=== PATIENT | male | born 1995 | race Caucasian/White ===

== ENCOUNTER 2024-08-28 09:01 | Emergency (ER) | payer SELFPAY ==
[2024-08-28 09:02] VITALS: BP 149/97; PULSE 72; RESP 16; TEMP 37; O2SAT 100
[2024-08-28 09:04] VITALS: BMI 32.5
--- NOTE | 2024-08-28 09:23 | RAD_ITS ---
HISTORY: Injury/Pain. TECHNIQUE: XR Foot Min 3 Views. COMPARISON: None. FINDINGS: BONES : No acute fracture identified. Degenerative cysts and osteophytes of the first metatarsophalangeal joint. JOINTS: No dislocation. Joint spaces maintained. SOFT TISSUES: No radiopaque foreign body identified. RAD/Foot min 3 Views IMPRESSION: No acute fracture or dislocation identified in the right foot. Electronically Signed: Pilar Anaya MD at 9:44 EST ,
--- NOTE | 2024-08-28 09:24 | ED.VIS.LOWEX ---
HPI History of Present Illness Chief Complaint: Lower Extremity Injury Informant: patient Narrative Narrative: Patient is a 29-year-old male denies any significant past medical history presenting with right foot pain. He states on night he did go to the [employer] game but does not recall an injury. He notes he was really cold and his feet were numb so it is possible he could have done something and not felt it. He had some mild discomfort of his foot on Wednesday but was able to work on Wednesday. He states at work he does a lot of walking. The pain progressed throughout the day on Wednesday and he started limping. Yesterday (Wednesday) he was not able to bear any weight. He tried elevation, ice and total of 4 ibuprofen throughout the whole day. He continued to have pain today is not really able to walk so he came in especially as he had to miss work. The pain is worse over his right foot on the lateral aspect. No significant pain with range of motion but slightly worse when he dorsiflexes. No fever or chills reported. No other complaints or concerns at this time. PFSH PFS Home Medications ?Medication ?Instructions ?Recorded ?Last Taken ?Type ibuprofen 600 mg tablet 600 mg PO Q6H PRN PRN pain #20 08/28/24 Unknown Rx TABLETS Allergy/AdvReac Type Severity Reaction Status Date / Time No Known Allergies Allergy Verified 08/28/24 09:01 Social History Smoking Status: Current every day smoker tobacco type: cigarettes ROS ROS ED Constitutional Constitutional ED: Denies chills or fever(s) Respiratory/Chest Respiratory/Chest: Denies cough or dyspnea Musculoskeletal Musculoskeletal: Reports other Details: Right foot pain Integumentary Denies rash Neurologic Neurologic: Denies paresthesias or weakness Hematologic/Lymphatic Hematologic/Lymphatic: Denies easy bleeding or easy bruising EXAM Physical Exam Const Vital Signs: 08/28/24 09:02 Temperature 98.6 F Temperature Source Oral Pulse Rate 72 Respiratory Rate 16 Blood Pressure 149/97 H Blood Pressure Mean 114 Pulse Ox 100 Oxygen Delivery Method Room Air Positive well nourished and well developed General Appearance ED: well developed and NAD HEENT Reports moist mucous membranes Chest Wall inspection of chest normal Resp normal respiratory effort and clear to auscultation bilaterally Cardio regular rate and regular rhythm Cardio Narrative: 2+ DP pulses Extremity full ROM Extremity Narrative: Right lower extremity Mild edema noted to the right foot most prominent over the 3rd through 4th metatarsal heads. There is mild tenderness palpation over the fourth metatarsal. No obvious deformity. No tenderness palpation over the medial lateral malleolus. No pain with range of motion of the ankle. No pain over palpation of the insertion of the plantar fascia. Normal Dennison test. No pain over the fibular head. Compartments are soft of the calf. Normal movement of the toes Neuro oriented x3 Sensorium / Orientation: alert Psych mental status grossly normal Skin Skin Narrative: There is some very mild erythema noted over his area of pain but I suspect is almost more reactive. No associated warmth. No tenderness with very light touch. No vesicular lesions appreciated. MDM MDM MDM Narrative Medical decision making narrative: Patient evaluated for right foot pain is progressing over the past few days. Does not recall particular injury but notes he is on his feet a lot. Differential includes stress fracture, foot sprain, osteoarthritis. Low suspicion for gout or septic arthritis based on physical exam as well as low suspicion for cellulitis based on physical exam. X-ray viewed by myself as well as radiology does not show any acute fracture or dislocation. Patient given a dose of Motrin in the emergency room. He is overall well-appearing. Will be given Simone wrap, postop shoe and outpatient podiatry follow-up. Is given a prescription for Motrin and a work note. Given return precautions. Counseled on RICE therapy. Discharged home in stable condition. Radiography Diagnostic Testing: Clinical Impression(s) from Imaging Studies Foot X-Ray 08/28/24 09:23 IMPRESSION: No acute fracture or dislocation identified in the right foot. Electronically Signed: Pilar Anaya MD at 9:44 EST Reading Location ID and State: [facility] / [place] Tel , Service support , Discharge Plan Triage Chief Complaint: Lower Extremity Injury ED Provider: Ness Michel Dx/Rx/DC Orders Clinical Impression: Right foot strain Instructions: ED Foot Sprain Prescriptions: New ibuprofen 600 mg tablet 600 mg PO Q6H PRN PRN (Reason: pain) Qty: 20 0RF Stand Alone Forms: ED Work / School Excuse Primary Care Provider: Care Physician,No Primary Referrals: Mahin Adair DPM [Med Staff - Courtesy Staff] - 3-5 Days if not improving NOT,DEFINED [Non-Staff] - Activity Restrictions/Additional Instructions: Alternate ibuprofen and Tylenol for pain. Practice RICE therapy with rest ice compression elevation. Follow-up with podiatry as needed. Wear postop shoe as needed for comfort. Print Language: Dominican Disposition Disposition: Home, Self Care
[2024-08-28] MEDS: Ibuprofen 600 MG Tablet PO (09:28)
--- NOTE | 2024-08-28 09:42 | CM.ED ---
Social Work Reason for visit: No PCP Patient verified that he does not currently have a PCP. Resource list given with local physicians, patient accepting of same. No further needs identified. aLni Beckwith, [employer]ELOP[employer], SPECIAL EDUCATION PROFESSIONAL
[2024-08-28 10:45] VITALS: BP 130/68; PULSE 72; RESP 14; TEMP 36.6; O2SAT 99
== END 2024-08-28 10:45 | disposition home or self-care (01) ==
PROVIDERS: Emergency Provider Emergency Medicine; Visit Provider Emergency Medicine
DX: S96.911A Strain of unspecified muscle and tendon at ankle and foot level, right foot, initial encounter (principal); X58.XXXA Exposure to other specified factors, initial encounter; F17.210 Nicotine dependence, cigarettes, uncomplicated
CPT/HCPCS: 73630; 99283